=== PATIENT | female | born 1970 | race Hispanic/Latino ===

== ENCOUNTER 2020-07-21 10:27 | Outpatient (CLI) | payer OTHER ==
--- NOTE | 2020-07-21 10:49 | RAD ---
XR Cerv Sp Ap Lat STANDARD History: Cervical radiculopathy Comparison: None. Findings: ACDF C5/C6 with discectomy cage. No hardware complication. The C1-2 articulation is normal. No superimposed fracture or malalignment. No listhesis. Impression: Satisfactory postoperative appearance.
== END 2020-07-21 10:28 | disposition home or self-care (01) ==
LOC: TBSIIMAG 10:27
PROVIDERS: ATTEND Neurological Surgery
DX: M54.12 Radiculopathy, cervical region (principal); Z98.1 Arthrodesis status
CPT/HCPCS: 72040

== ENCOUNTER 2021-06-14 08:15 | Outpatient (CLI) | payer OTHER | END 2021-06-14 08:16 | disposition home or self-care (01) | LOC: BICRAD 08:15 | PROVIDERS: ATTEND Family Medicine | DX: M54.41 Lumbago with sciatica, right side (principal); M51.37 Other intervertebral disc degeneration, lumbosacral region; M47.816 Spondylosis without myelopathy or radiculopathy, lumbar region | CPT/HCPCS: 72100 ==